=== PATIENT | male | born 1980 | race Caucasian/White ===

== ENCOUNTER 2022-06-23 14:47 | Outpatient (CLI) | payer BC, SELFPAY ==
[2022-06-23 17:58] LABS: Chloride* 105 mmol/L (96-114); Sodium* 142 mmol/L (135-149)
[2022-06-23 18:01] LABS: Carbon Dioxide* 25 mmol/L (20-32); Creatinine* 0.6 mg/dL (0.5-1.5); Estimated Glomerular Filt Rate 124 ml/min
[2022-06-23 18:02] LABS: Blood Urea Nitrogen* 13 mg/dL (5-24); Calcium* 9.4 mg/dL (8.4-10.6); Glucose* 103 mg/dL (60-115)
== END 2022-06-23 14:48 | disposition home or self-care (01) ==
LOC: LONREF 14:48
PROVIDERS: PCP Family Medicine; Visit Provider Family Medicine
DX: Z01.818 Encounter for other preprocedural examination (principal)
CPT/HCPCS: 80048